=== PATIENT | female | born 1965 | race Caucasian/White ===

== ENCOUNTER 2016-09-01 14:32 | Emergency (ER) | payer OTHER ==
[~2016-09-01 14:32] MED LIST: HYDROXYCHLOROQ200 M1 PO; KEFLEX500 M1 PO; MELOXICAM15 MG PO
[2016-09-01] MEDS ORDERED: NORCO 5-325 TA1 EACH PO (17:45)
== END 2016-09-01 18:05 ==
LOC: EDMED 14:32
DX: S42.201A Unspecified fracture of upper end of right humerus, initial encounter for closed fracture (principal); W01.0XXA Fall on same level from slipping, tripping and stumbling without subsequent striking against object, initial encounter; Y92.009 Unspecified place in unspecified non-institutional (private) residence as the place of occurrence of the external cause
CPT/HCPCS: J2270; J2405; J2704; J7030